=== PATIENT | female | born 1985 | race Caucasian/White ===

== ENCOUNTER 2016-10-09 10:13 | Emergency (ER) | payer MEDICAID, OTHER ==
[~2016-10-09] VITALS: Ht 180.3 cm; Wt 130.0 kg
[~2016-10-09 10:13] MED LIST: DIPH1TAB36 PO; LORTA5 PO; METR500I3 PO; TIZA4 PO
[2016-10-09 10:20] VITALS: BP 160/95; PULSE 95; RESP 17; TEMP 97.8; O2SAT 98
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
[2016-10-09] MEDS ORDERED: KETOROLAC TROMETHAMINE 60 MG/2 ML (IM) VIAL IM ONE (10:45)
[2016-10-09] MEDS ORDERED: ORPHENADRINE INJ 60 MG/2 ML AMP IM ONE (10:45)
[2016-10-09] MEDS ORDERED: NAPR500 PO (11:09)
[2016-10-09] MEDS ORDERED: CYCL1TAB29 PO (11:09)
== END 2016-10-09 11:30 | disposition home or self-care (01) ==
LOC: NEPD 10:13
DX: S39.012A Strain of muscle, fascia and tendon of lower back, initial encounter (principal); X50.1XXA Overexertion from prolonged static or awkward postures, initial encounter; Y93.89 Activity, other specified; J45.909 Unspecified asthma, uncomplicated; F17.210 Nicotine dependence, cigarettes, uncomplicated; F12.90 Cannabis use, unspecified, uncomplicated
CPT/HCPCS: 96372; 99283; J1885; J2360; L0627

== ENCOUNTER 2017-06-21 16:42 | Emergency (ER) | payer MEDICAID ==
[~2017-06-21] VITALS: Ht 180.3 cm; Wt 120.0 kg
[~2017-06-21 16:42] MED LIST changes: +CYCL10TA PO; -DIPH1TAB36 PO; -LORTA5 PO; -METR500I3 PO; +NAPR500 PO; -TIZA4 PO
[2017-06-21 16:45] VITALS: BP 145/82; PULSE 108; RESP 22; TEMP 97.6; O2SAT 98
[2017-06-21] MEDS ORDERED: HYDR-3583 (17:06)
[2017-06-21] MEDS ORDERED: NAPR500 PO (17:44)
[2017-06-21] MEDS ORDERED: KETOROLAC TROMETHAMINE 60 MG/2 ML (IM) VIAL IM ONE (17:45)
[2017-06-21] MEDS ORDERED: ORPHENADRINE INJ 60 MG/2 ML AMP IM ONE (17:45)
--- NOTE | 2017-06-21 17:45 | PD ---
HPI Chief Complaint: Back/ Neck Pain or Injury Time Seen by Provider: 17:22 Travel History International Travel<30 days: No Contact w/Intl Traveler<30days: No Traveled to known affect area: No History of Present Illness HPI 32-year-old female presents to the emergency Department with complaint of mid and left-sided lower back pain after getting herself up off the couch this morning and twisting her back. Has history of chronic low back pain and herniated disks. Denies encopresis, incontinence, saddle anesthesias. Denies fever. Reports vomiting a few hours ago. Denies IV drug use or cancer. Pain radiates down the back of her left leg. Reports paresthesias to the left leg. Denies loss of sensation, decreased range of motion to bilateral lower extremities. Reports being ambulatory with a limp to the left lower extremity. Pain 10/10. Describes it as a stabbing, throbbing sensation. Has taken Percocet and Flexeril for symptom management. Pain is constantly aggravated. Worse with movement and ambulation. Sees pain management. Has primary care provider. Allergies as listed on the chart. Has no other medical complaints. No other modifying factors or associated signs and symptoms. PFSH Past Medical History Asthma: Yes Cancer: Yes (LEUKEMIA) Cardi[place] Problems: [place]) Chemotherapy: Yes (LAST [place] 2008) Chest Pain: Yes Diminished Hearing: No Endocrine: Yes (HYPOGLYCEMIA) Gastrointestinal Disorders: Yes (HYPOGLYCEMIA) GERD: Yes Genitourinary: Yes (URINARY TRACT INFECTION) Neurologic: Yes (TUMOR POST HEAD) Integumentary: Yes (CHRONIC HIVES) Immunizations Current: No Migraines: Yes Radiation Therapy: Yes Ulcer: Yes ?: Not Menopausal: No : 5 Para: 1 Miscarriage: 4 : 0 Ovarian Cysts: Yes Past Surgical History Abdominal Surgery: Yes (C SECT) Body Medical Devices: BONE CYST R ANKLE Section: Yes Gynecologic Surgery: Yes Social History Alcohol Use: No Tobacco Use: Yes (1 PPD) Substance Use: No Allergies-Medications (Allergen,Severity, Reaction): Coded Allergies: prednisone (Unverified Allergy, Intermediate, HIVES/FLUSH, 06/21/17) acetaminophen (Unverified Adverse Reaction, Intermediate, NAUSEA, 06/21/17 ) amoxicillin (Unverified Adverse Reaction, Intermediate, HIVES, SWELLING, 06/21/17) aspirin (Unverified Adverse Reaction, Intermediate, HIVES, SWELLING, 06/21) coconut (Unverified Adverse Reaction, Intermediate, SOB, 06/21/17) penicillin G (Unverified Adverse Reaction, Intermediate, HIVES, SWELLING, 06/21/17) promethazine (Unverified Adverse Reaction, Intermediate, SYNCOPE, 06/21/17 ) propoxyphene (Unverified Adverse Reaction, Intermediate, NAUSEA, 06/21/17) tramadol (Unverified Adverse Reaction, Intermediate, 06/21/17) Reported Meds & Prescriptions Reported Meds & Active Scripts Active Naprosyn (Naproxen) 500 Mg Tab 500 Mg PO BID PRN 10 Days Flexeril (Cyclobenzaprine HCl) 10 Mg Tab 10 Mg PO TID PRN Reported Hydrocodone-Acetamin 10-325 mg (Hydrocodone/Acetaminophen) 10 Mg-325 Mg Tablet Review of Systems Except as stated in HPI: all other systems reviewed are Neg Physical Exam Narrative GENERAL: Well-nourished, well-developed female patient, in no acute distress; afebrile, nontoxic-appearing SKIN: Warm and dry. HEAD: Atraumatic. Normocephalic. EYES: Pupils equal and round. No scleral icterus. No injection or drainage. ENT: Mucosa pink and moist. Airway patent. NECK: Trachea midline. CARDIOVASCULAR: Regular rate. RESPIRATORY: No accessory muscle use. GASTROINTESTINAL: Obese. MUSCULOSKELETAL: Bilateral lower extremities supple and non-tense with 2+ pedal pulses and sensory intact; with full range of motion and 5/5 strength. 2 + DTRs bilaterally. Active dorsiflexion and extension of bilateral feet. Left straight leg raise is left for low back pain. Ambulatory in room with normal gait. Sitting up in bed at 90. No obvious deformities. No clubbing. No cyanosis. No edema. BACK: Midline point tenderness on palpation of the lumbar spine. Tenderness on palpation of left lumbar paraspinal and iliosacral area. No obvious deformities. NEUROLOGICAL: Awake and alert. Oriented 3. No obvious cranial nerve deficits. Motor grossly within normal limits. Normal speech. Moves all extremities. 5/5 strength to all extremities. Sensory intact. PSYCHIATRIC: Appropriate mood and affect; insight and judgment normal. Data Data Last Documented VS Vital Signs Date Time Temp Pulse Resp B/P (MAP) Pulse Ox O2 Delivery O2 Flow Rate FiO2 06/21/17 16:45 97.6 108 22 145/82 (103) 98 Room Air Orders Orders Ketorolac Inj (Toradol Inj) (06/21/17 17:45) Orphenadrine Inj (Norflex Inj) (06/21/17 17:45) Spine, Lumbar - Ltd (Ap & Lat) (06/21/17 17:36) MDM Medical Decision Making Medical Screen Exam Complete: Yes Emergency Medical Condition: Yes Medical Record Reviewed: Yes Differential Diagnosis Acute exacerbation of chronic low back pain, left-sided sciatica, low back strain Narrative Course 32-year-old female with acute exacerbation of chronic low back pain and left- sided sciatica. Denies encopresis, incontinence, saddle anesthesias. Denies IV drug use or cancer. Patient is afebrile and nontoxic-appearing. She has midline tenderness on palpation of the lumbar spine. I suspect this is a normal finding for her secondary to chronic low back pain and herniated disks, but I will x-ray the lumbar spine rule out acute findings. Lumbar x-ray, Toradol, Norflex ordered. 1815: Lumbar spine x-ray with mild scoliosis. Naproxen prescribed for home. Instructed patient to follow up with neurosurgeon and pain management. Instructed patient to follow up with primary care provider. Patient verbalizes understanding and agreement with treatment plan. Patient is medically cleared and stable for discharge. Discussed reasons to return to the emergency department. Patient agrees with treatment plan. The patients vital signs are stable and the patient is stable for outpatient follow-up and treatment. Patient discharged home, stable and in no acute distress. Diagnosis Primary Impression: Low back strain Qualified Codes: S39.012A - Strain of muscle, fascia and tendon of lower back , initial encounter Additional Impressions: Acute exacerbation of chronic low back pain Left sided sciatica Referrals: Neurosurgeon Pain Management Primary Care Physician Patient Instructions: Acute Low Back Pain (ED), General Instructions, Low Back Strain (ED), Sciatica (ED) Additional Instructions: Tylenol or ibuprofen as directed and as needed for pain Continue Pain medications and muscle relaxers as prescribed and as needed Heating pad and/or ice to affected area to reduce pain Avoid aggravating activities; increase activity as tolerated Follow-up with primary care provider Follow-up with neurosurgeon Follow-up with pain management Return to emergency department immediately with worsening of symptoms Med/Other Pt SpecificInfo: Prescription(s) given, No Change to Meds Scripts Naproxen (Naprosyn) 500 Mg Tab 500 MG PO BID Y for PAIN SCALE 1 TO 10 for 10 Days, #20 TAB 0 Refills Prov: Isabell Kiser 06/21/17 Disposition: 01 DISCHARGE HOME Condition: Stable Isabell Kiser Jun 21, 2017 17:45
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
== END 2017-06-21 18:47 | disposition home or self-care (01) ==
LOC: NEPD 16:42
DX: S39.012A Strain of muscle, fascia and tendon of lower back, initial encounter (principal); J45.909 Unspecified asthma, uncomplicated; K21.9 Gastro-esophageal reflux disease without esophagitis; I25.2 Old myocardial infarction; F17.200 Nicotine dependence, unspecified, uncomplicated; X50.1XXA Overexertion from prolonged static or awkward postures, initial encounter; Z85.6 Personal history of leukemia; Z79.899 Other long term (current) drug therapy; Z88.6 Allergy status to analgesic agent
CPT/HCPCS: 72100; 96372; 99284; J1885; J2360

== ENCOUNTER 2017-11-15 13:58 | Emergency (ER) | payer MEDICAID ==
[~2017-11-15] VITALS: Ht 180.3 cm; Wt 137.7 kg
[~2017-11-15 13:58] MED LIST changes: +HYDR-3583
[2017-11-15 14:08] VITALS: BP 178/93; PULSE 86; RESP 16; TEMP 97.8; O2SAT 98
[2017-11-15 14:28] LABS: BILIRUBIN, URINE NEG (NEG); BLOOD, URINE NEG (NEG); GLUCOSE,URINE NEG (NEG); KETONE, URINE NEG (NEG); NITRITE,URINE NEG (NEG); PH, URINE 5.5 (5.0-8.5); URINE COLOR YELLOW (YELLW/STRAW); URINE LEUKOCYTE ESTERASE NEG (NEG)
[2017-11-15 14:37] LABS: WBC, URINE 0-2 /hpf (0-5)
[2017-11-15 14:38] LABS: SQUAMOUS EPITHELIAL CELL URINE 0-4 /hpf (0-5)
[2017-11-15] MEDS ORDERED: KETOROLAC TROMETHAMINE 60 MG/2 ML (IM) VIAL IM ONE (14:45)
--- NOTE | 2017-11-15 14:48 | PD ---
HPI Chief Complaint: Musculoskeletal Complaint Time Seen by Provider: 14:25 Travel History International Travel<30 days: No Contact w/Intl Traveler<30days: No Traveled to known affect area: No History of Present Illness HPI 32-year-old female here with left low back pain 2 days. Reports that the pain originates in the left low back and radiates down into the left leg. She has a history of chronic back pain that felt similar in the past. She was concerned this may be a possible kidney infection which prompted a visit today. She denies fever, chills, incontinence, saddle anesthesia, abdominal pain, paresthesia or weakness of the extremities. Symptom severity is moderate. No aggravating or alleviating factors. PFSH Past Medical History Asthma: Yes Cancer: Yes (LEUKEMIA) Cardiovascular Problems: [place] ([place] 2009) Chemotherapy: Yes (LAST [place] 2008) Chest Pain: Yes Diminished Hearing: No Endocrine: Yes (HYPOGLYCEMIA) Gastrointestinal Disorders: Yes (HYPOGLYCEMIA) GERD: Yes Genitourinary: Yes (URINARY TRACT INFECTION) Neurologic: Yes (TUMOR POST HEAD) Integumentary: Yes (CHRONIC HIVES) Immunizations Current: No Migraines: Yes Radiation Therapy: Yes Ulcer: Yes Tetanus Vaccination: > 5 Years Influenza Vaccination: No ?: Not LMP: 11/04/17 Menopausal: No : 5 Para: 1 Miscarriage: 4 : 0 Ovarian Cysts: Yes Past Surgical History Abdominal Surgery: Yes (C SECT) Body Medical Devices: BONE CYST R ANKLE Section: Yes Gynecologic Surgery: Yes Social History Alcohol Use: No Tobacco Use: Yes (1 PPD) Substance Use: No Allergies-Medications (Allergen,Severity, Reaction): Coded Allergies: prednisone (Unverified Allergy, Intermediate, HIVES/FLUSH, 11/15/17) acetaminophen (Unverified Adverse Reaction, Intermediate, NAUSEA, 11/15/17) amoxicillin (Unverified Adverse Reaction, Intermediate, HIVES, SWELLING, ) aspirin (Unverified Adverse Reaction, Intermediate, HIVES, SWELLING, ) pt states does not have a allergy to this. [place] coconut (Unverified Adverse Reaction, Intermediate, SOB, 11/15/17) penicillin G (Unverified Adverse Reaction, Intermediate, HIVES, SWELLING, 11/15/17) promethazine (Unverified Adverse Reaction, Intermediate, SYNCOPE, 11/15/17) propoxyphene (Unverified Adverse Reaction, Intermediate, NAUSEA, 11/15/17) tramadol (Unverified Adverse Reaction, Intermediate, 11/15/17) Reported Meds & Prescriptions Reported Meds & Active Scripts Active Flexeril (Cyclobenzaprine HCl) 10 Mg Tab 10 Mg PO TID PRN Reported Hydrocodone-Acetamin 10-325 mg (Hydrocodone/Acetaminophen) 10 Mg-325 Mg Tablet Review of Systems Except as stated in HPI: all other systems reviewed are Neg General / Constitutional: No: Fever Eyes: No: Visual changes HENT: No: Headaches Cardiovascular: No: Chest Pain or Discomfort Respiratory: No: Shortness of Breath Gastrointestinal: No: Abdominal Pain Physical Exam Narrative GENERAL: Alert and well-appearing 32-year-old female SKIN: Warm and dry. HEAD:Normocephalic. NECK: Supple CARDIOVASCULAR: Regular rate and rhythm. RESPIRATORY: No accessory muscle use. Clear to auscultation. Breath sounds equal bilaterally. GASTROINTESTINAL: Abdomen soft, non-tender, nondistended. Hepatic and splenic margins not palpable. MUSCULOSKELETAL: Extremities without clubbing, cyanosis, or edema. No obvious deformities. BACK: No CVA tenderness. No rash. No point tenderness on palpation of the spine.+ Tenderness to the left paravertebral musculature and left gluteal region. NEUROLOGICAL: Awake and alert. No obvious cranial nerve deficits. Motor grossly within normal limits. Five out of 5 muscle strength in the arms and legs. Normal speech. Ambulating with a steady gait PSYCHIATRIC: Appropriate mood and affect; insight and judgment normal. Data Data Last Documented VS Vital Signs Date Time Temp Pulse Resp B/P (MAP) Pulse Ox O2 Delivery O2 Flow Rate FiO2 11/15/17 14:08 97.8 86 16 178/93 (121) 98 Orders Orders Urinalysis - C+S If Indicated (11/15/17 14:00) Ed Urine Pregnancytest Poc (11/15/17 14:00) Ketorolac Inj (Toradol Inj) (11/15/17 14:45) Labs Laboratory Tests Test 11/15/17 14:15 Urine Collection Type VOIDED Urine Color YELLOW Urine Turbidity CLEAR Urine pH 5.5 Urine Specific [place] GREATER/EQUAL 1.030 Urine Protein NEG mg/dL Urine Glucose (UA) NEG mg/dL Urine Ketones NEG mg/dL Urine Occult Blood NEG Urine Nitrite NEG Urine Bilirubin NEG Urine Urobilinogen 0.2 MG/DL Urine Leukocyte Esterase NEG Urine WBC 0-2 /hpf Urine Squamous Epithelial Cells 0-4 /hpf Microscopic Urinalysis Comment CULT NOT INDICATED MDM Medical Decision Making Medical Screen Exam Complete: Yes Emergency Medical Condition: Yes Differential Diagnosis Acute on chronic low back pain, sciatica, pyelonephritis, nephrolithiasis Narrative Course 32-year-old female with left low back pain. Her exam is consistent with sciatica. UA was negative for infection. She was given a shot of Toradol. She reports symptom improvement. She is stable and ready for discharge Diagnosis Primary Impression: Low back strain Qualified Codes: S39.012A - Strain of muscle, fascia and tendon of lower back , initial encounter Referrals: Primary Care Physician Additional Instructions: Ibuprofen 800 mg every 6 hours as needed for pain. Disposition: 01 DISCHARGE HOME Condition: Stable Leah No November 15, 2017 14:48
== END 2017-11-15 15:11 | disposition home or self-care (01) ==
LOC: PHEFT 13:58
DX: S39.012A Strain of muscle, fascia and tendon of lower back, initial encounter (principal); J45.909 Unspecified asthma, uncomplicated; K21.9 Gastro-esophageal reflux disease without esophagitis; I25.2 Old myocardial infarction; F17.200 Nicotine dependence, unspecified, uncomplicated; Z85.6 Personal history of leukemia; Z88.0 Allergy status to penicillin; Z88.6 Allergy status to analgesic agent; X58.XXXA Exposure to other specified factors, initial encounter
CPT/HCPCS: 81001; 84703; 96372; 99283; J1885

== ENCOUNTER 2017-12-06 18:18 | Observation (INO) | payer MEDICAID ==
[~2017-12-06] VITALS: Ht 180.3 cm; Wt 138.9 kg
[2017-12-06] VITALS (8 sets, daily range): BP systolic 126–195; BP diastolic 65–92; PULSE 74–99; RESP 18–20; TEMP 97.2–97.7; O2SAT 96–100
[~2017-12-06 18:18] MED LIST changes: -NAPR500 PO
[2017-12-06] MEDS ORDERED: NITR1SUB2 SL (18:33)
[2017-12-06] MEDS ORDERED: RANI150T PO (18:33)
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
[2017-12-06 19:00] LABS: AUTOMATED NEUTROPHIL # 8.8 TH/MM3 (1.8-7.7); BASOPHIL # 0.3 TH/MM3 (0-0.2); BASOPHIL % 1.9 % (0.0-2.0); EOSINOPHIL # 0.1 TH/MM3 (0-0.4); EOSINOPHIL % 0.7 % (0.0-4.0); HEMATOCRIT 40.3 % (35.0-46.0); HEMOGLOBIN 13.6 GM/DL (11.6-15.3); LYMPH % 28.9 % (9.0-44.0); MEAN CELL VOLUME 86.6 FL (80.0-100.0); MEAN CORPUSCULAR HEMOGLOBIN 29.2 PG (27.0-34.0); MEAN CORPUSCULAR HGB CONC 33.7 % (32.0-36.0); MEAN PLATELET VOLUME 9.9 FL (7.0-11.0); MONO % 3.9 % (0.0-8.0); MONOCYTE # 0.5 TH/MM3 (0-0.9); NEUT % 64.6 % (16.0-70.0); PLATELET COUNT 277 TH/MM3 (150-450); RED BLOOD COUNT 4.65 MIL/MM3 (4.00-5.30); RED CELL DISTRIBUTION WIDTH 13.4 % (11.6-17.2); WHITE BLOOD COUNT 13.7 TH/MM3 (4.0-11.0)
[2017-12-06] MEDS ORDERED: SODIUM CHLORIDE 0.9% FLUSH 10 ML FLUSH IVF PRN (19:00)
[2017-12-06 19:15] LABS: CHLORIDE 109 MEQ/L (98-107); SODIUM (NA) 140 MEQ/L (136-145)
[2017-12-06 19:18] LABS: CALCIUM 8.7 MG/DL (8.5-10.1)
[2017-12-06 19:19] LABS: BICARBONATE 22.6 MEQ/L (21.0-32.0); BLOOD UREA NITROGEN 12 MG/DL (7-18); GLUCOSE,RANDOM 118 MG/DL (74-106)
[2017-12-06 19:22] LABS: CREATININE 0.66 MG/DL (0.50-1.00); GLOMERULAR FILTRATION RATE 103 ML/MIN (>89)
[2017-12-06 19:27] LABS: TROPONIN I LESS THAN 0.02 NG/ML (0.02-0.05)
--- NOTE | 2017-12-06 19:31 | RADRPT ---
EXAM DATE: 12/06/2017 7:20 PM EDT AGE/SEX: 32 years / Female INDICATIONS: Chest pain. CLINICAL DATA: This is the patient's initial encounter. Patient reports that signs and symptoms have been present for 3 days and indicates a pain score of 7/10. MEDICAL/SURGICAL HISTORY: Radiculopathy. None. COMPARISON: No prior exams available for comparison. FINDINGS: No focal consolidation or effusion. No pneumothorax. Heart size normal. CONCLUSION: No active disease. Electronically signed by: Enzo Clark MD 12/06/2017 7:30 PM EDT
[2017-12-06 19:44] LABS: D-DIMER 0.32 MG/L FEU (0.00-0.50)
[2017-12-06 20:10] LABS: LYMPHOCYTES 31 % (9-44); MONOCYTES 2 % (0-8); POLYS (SEG NEUTROPHILS) 66 % (16-70)
--- NOTE | 2017-12-06 20:13 | PD ---
Data Data Last Documented VS Vital Signs Date Time Temp Pulse Resp B/P (MAP) Pulse Ox O2 Delivery O2 Flow Rate FiO2 12/06/17 20:30 98 Nasal Cannula 2.00 12/06/17 20:30 84 18 143/92 (109) 12/06/17 18:21 97.7 Orders Orders Electrocardiogram (12/06/17 18:48) Basic Metabolic Panel (Bmp) (12/06/17 18:48) Ckmb (Isoenzyme) Profile (12/06/17 18:48) Complete Blood Count With Diff (12/06/17 18:48) Magnesium (Mg) (12/06/17 18:48) Prothrombin Time / Inr (Pt) (12/06/17 18:48) Act Partial Throm Time (Ptt) (12/06/17 18:48) Troponin I (12/06/17 18:48) Ecg Monitoring (12/06/17 18:48) Bilateral Bp Monitoring (12/06/17 18:48) Iv Access Insert/Monitor (12/06/17 18:48) Oximetry (12/06/17 18:48) Oxygen Administration (12/06/17 18:48) Sodium Chloride 0.9% Flush (Ns Flush) (12/06/17 19:00) Chest, Pa & Lat (12/06/17 18:48) D-Dimer (12/06/17 18:55) Aspirin Chew (Aspirin Chew) (12/06/17 20:15) Nitroglycerin Sl (Nitrostat Sl) (12/06/17 20:15) Admit Order (Ed Use Only) (12/06/17 ) Labs Laboratory Tests Test 12/06/17 18:55 White Blood Count 13.7 TH/MM3 Red Blood Count 4.65 MIL/MM3 Hemoglobin 13.6 GM/DL Hematocrit 40.3 % Mean Corpuscular Volume 86.6 FL Mean Corpuscular Hemoglobin 29.2 PG Mean Corpuscular Hemoglobin Concent 33.7 % Red Cell Distribution Width 13.4 % Platelet Count 277 TH/MM3 Mean Platelet Volume 9.9 FL Neutrophils (%) (Auto) 64.6 % Lymphocytes (%) (Auto) 28.9 % Monocytes (%) (Auto) 3.9 % Eosinophils (%) (Auto) 0.7 % Basophils (%) (Auto) 1.9 % Neutrophils # (Auto) 8.8 TH/MM3 Lymphocytes # (Auto) 4.0 TH/MM3 Monocytes # (Auto) 0.5 TH/MM3 Eosinophils # (Auto) 0.1 TH/MM3 Basophils # (Auto) 0.3 TH/MM3 CBC Comment AUTO DIFF Differential Total Cells Counted 100 Neutrophils % (Manual) 66 % Lymphocytes % 31 % Monocytes % 2 % Eosinophils % 1 % Neutrophils # (Manual) 9.0 TH/MM3 Differential Comment FINAL DIFF MANUAL Platelet Estimate NORMAL Platelet Morphology Comment NORMAL Red Cell Morphology Comment NORMAL Prothrombin Time 10.0 SEC Prothromb Time International Ratio 1.0 RATIO Activated Partial Thromboplast Time 25.9 SEC D-Dimer Quantitative (PE/DVT) 0.32 MG/L FEU Blood Urea Nitrogen 12 MG/DL Creatinine 0.66 MG/DL Random Glucose 118 MG/DL Calcium Level 8.7 MG/DL Magnesium Level 2.0 MG/DL Sodium Level 140 MEQ/L Potassium Level 3.5 MEQ/L Chloride Level 109 MEQ/L Carbon Dioxide Level 22.6 MEQ/L Anion Gap 8 MEQ/L Estimat Glomerular Filtration Rate 103 ML/MIN Total Creatine Kinase 61 U/L Troponin I LESS THAN 0.02 NG/ML MDM Supervised Visit with PRISCA: No Narrative Course Patient care assumed from Dr. Palmer at 1900. This is a 32 year old female presents with squeezing left sided chest pain radiating down her left arm with numbness and tingling in left finger tips. Patient is obese, HTN, HLD, and has family history of father having HI in mid 30's. Had stress test 18 moths ago was negative. Workup here shows non-specific ekg changes, trop negative, d- dimer negative. patient volunteers that their May be an anxiety component. Discussed stress testing indicated either inpatient or outpatient. She would like obs status now as she is unsure how long it will take to get into her physician's office. Discussed monse Suresh for obs. Diagnosis Primary Impression: Chest pain Qualified Codes: R07.9 - Chest pain, unspecified Admitting Information Admitting Physician Requests: Observation Condition: Stable Miller Barnhart MD Dec 06, 2017 20:13
[2017-12-06] MEDS ORDERED: ASPIRIN 81 MG CHEW TAB CHEW ONE (20:15)
[2017-12-06] MEDS ORDERED: NITROGLYCERIN 0.4 MG SL 25 TABS/BTL SL ONE (20:15)
[2017-12-06] MEDS ORDERED: SODIUM CHLORIDE 0.9% FLUSH 10 ML FLUSH IV FLUSH PRN (20:30)
[2017-12-06] MEDS ORDERED: ONDANSETRON HCL 4 MG/2 ML VIAL IV PUSH PRN (20:30)
[2017-12-06] MEDS: SODIUM CHLORIDE 0.9% FLUSH 10 ML FLUSH IV FLUSH SCH (21:00)
[2017-12-06] MEDS: SODIUM CHLOR 0.9% 1000 ML INJ 1,000 ML IV SCH (22:32)
[2017-12-06] MEDS: MORPHINE SULFATE 4 MG/ML INJ IV PUSH PRN (22:32)
[2017-12-06] MEDS: HEPARIN SODIUM - SQ 10,000 UNITS/ML VIAL SQ SCH (22:33)
[2017-12-06 23:02] LABS: TROPONIN I LESS THAN 0.02 NG/ML (0.02-0.05)
[2017-12-07 00:17] VITALS: BP 107/59; PULSE 71; RESP 20; TEMP 96.5; O2SAT 99
[2017-12-07 02:05] LABS: TROPONIN I LESS THAN 0.02 NG/ML (0.02-0.05)
[2017-12-07] MEDS: MORPHINE SULFATE 4 MG/ML INJ IV PUSH PRN ×3 (02:36→11:21)
[2017-12-07 04:00] VITALS: BP 117/59; PULSE 76; RESP 18; TEMP 96.5; O2SAT 97
[2017-12-07] MEDS: HEPARIN SODIUM - SQ 10,000 UNITS/ML VIAL SQ SCH (05:26)
[2017-12-07] MEDS: SODIUM CHLOR 0.9% 1000 ML INJ 1,000 ML IV SCH (06:30)
[2017-12-07] MEDS: SODIUM CHLORIDE 0.9% FLUSH 10 ML FLUSH IV FLUSH SCH (07:26)
[2017-12-07 08:00] VITALS: BP 118/57; PULSE 64; PULSE 69; PULSE 84; RESP 21; TEMP 97.2; O2SAT 97
[2017-12-07 09:01] VITALS: O2SAT 93
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
[2017-12-07] MEDS ORDERED: FAMOTIDINE 20 MG TAB PO SCH (10:00)
[2017-12-07] MEDS ORDERED: ACETAMINOPHEN/HYDROcodone 325 MG/10 MG TAB PO PRN (10:00)
[2017-12-07] MEDS ORDERED: CYCLOBENZAPRINE HCL 10 MG TAB PO PRN (10:00)
[2017-12-07 12:00] VITALS: BP 113/63; PULSE 67; RESP 22; TEMP 97.9; O2SAT 98
[2017-12-07] MEDS ORDERED: REGADENOSON INJ 0.4 MG/5 ML SYR IV ONE (12:23)
--- NOTE | 2017-12-07 13:39 | RADRPT ---
EXAM DATE: 12/07/2017 1:33 PM EDT AGE/SEX: 32 years / Female INDICATIONS:Angina. . Left sided chest pain. CLINICAL DATA: This is the patient's initial encounter. Patient reports that signs and symptoms have been present for 1 week and indicates a pain score of 2/10. MEDICAL/SURGICAL HISTORY: Leukemia. Asthma and smoker. section. COMPARISON: No prior exams available for comparison. DOSE: 11 mCi Tc 99m Myoview at rest 35 mCi [id number] at stress 0.4 mg Lexiscan STRESS SYMPTOMS: Chest pressure. EJECTION FRACTION: 66 % TECHNIQUE: The patient underwent pharmacologic stress with infusion of prescribed dose. Continuous ECG tracing was monitored during stress. Gated SPECT imaging was performed after stress and conventi onal SPECT imaging was performed at rest. The examination was performed on a SPECT/CT scanner, both attenuation and non-corrected datasets were reviewed. FINDINGS: Distribution: The maximum perfused segment at stress is in the septal wall. Perfusion Study: The examination is somewhat limited due to cut activity on both the stress and res t images. Gated Study: There are intact wall motion and wall thickening without hypokinetic or dyskinetic segm ents. The ejection fraction is calculated at 66%. RISK CATEGORY: Low (<1% Annual Motality Rate) CONCLUSION: 1. No reversible perfusion defect to indicate stress-induced myocardial ischemia identified. 2. Examination is somewhat limited due to overlying gut activity on the stress and rest images. This partially obscures inferior wall. Electronically signed by: Remigio Hu MD 12/07/2017 1:38 PM EDT
--- NOTE | 2017-12-07 14:11 | HHI.DCPOC ---
Discharge Care Plan Diagnosis: (1) Chest pain (2) Low back strain Goals to Promote Your Health * To prevent worsening of your condition and complications * To maintain your health at the optimal level Directions to Meet Your Goals Take your medications as prescribed Follow your dietary instruction Follow activity as directed Keep your appointments as scheduled Take your immunizations and boosters as scheduled If your symptoms worsen call your PCP, if no PCP go to Urgent Care Center or Emergency Room Smoking is Dangerous to Your Health. Avoid second hand smoke Call the 24-hour hour crisis hotline for domestic abuse at Aletha Tirado Dec 07, 2017 14:11
--- NOTE | 2017-12-07 15:35 | TR ---
Date Performed: 12/07/2017 Time Performed: 12:41:46 DOCTOR: Donte Workman DRUG LIST: CLINICAL HISTORY: REASON FOR TEST: REASON FOR ENDING: OBSERVATION: CONCLUSION: COMMENTS: Lexiscan stress test was performed under standard four minute protocol. Radionuclide was injected one minute prior to ending the test. No electrocardiographic abormalities were present t o suggest ischemia. Nuclear imaging and interpretation are pending.
--- NOTE | 2017-12-07 23:01 | EKG ---
Date Performed: 12/07/2017 Time Performed: 01:02:04 PTAGE: 32 years EKG: Sinus rhythm NORMAL ECG PREVIOUS TRACING : 12/06/2017 22.08 DOCTOR: Maddie Bauer Interpretating Date/Time 12/07/2017 22:54:58
--- NOTE | 2017-12-07 23:04 | EKG ---
Date Performed: 12/06/2017 Time Performed: 22:08:17 PTAGE: 32 years EKG: Sinus rhythm WITH SINUS ARRHYTHMIA NORMAL ECG PREVIOUS TRACING : 12/06/2017 18.29 DOCTOR: Maddie Bauer Interpretating Date/Time 12/07/2017 22:56:20
--- NOTE | 2017-12-07 23:07 | EKG ---
Date Performed: 12/06/2017 Time Performed: 18:29:59 PTAGE: 32 years EKG: Sinus rhythm NORMAL ECG PREVIOUS TRACING : 09/11/2010 20.24 DOCTOR: Maddie Bauer Interpretating Date/Time 12/07/2017 22:58:42
== END 2017-12-07 17:00 | disposition home or self-care (01) ==
LOC: PHED 18:18 → PHEDA 20:31 → PH3A 21:52
PROVIDERS: ADMIT Hospitalist; ATTEND Hospitalist
DX: R07.89 Other chest pain (principal); S39.012A Strain of muscle, fascia and tendon of lower back, initial encounter; R20.2 Paresthesia of skin; R20.0 Anesthesia of skin; G89.29 Other chronic pain; F17.210 Nicotine dependence, cigarettes, uncomplicated; E66.9 Obesity, unspecified; J45.909 Unspecified asthma, uncomplicated; Z85.6 Personal history of leukemia; E16.2 Hypoglycemia, unspecified; K21.9 Gastro-esophageal reflux disease without esophagitis; Z87.440 Personal history of urinary (tract) infections; G43.909 Migraine, unspecified, not intractable, without status migrainosus; Z82.49 Family history of ischemic heart disease and other diseases of the circulatory system
CPT/HCPCS: 71046; 78452; 80048; 82550; 83735; 84484; 85007; 85027; 85379; 85610; 85730; 93005; 93017; 96361; 96374; 96376; 99285; A9502; G0378; J1644; J2270; J2785; J7030